=== PATIENT | female | born 1970 | race Caucasian/White ===

== ENCOUNTER 2020-05-19 20:42 | Emergency (ER) | payer OTHER ==
[2020-05-19] MEDS ORDERED: Ondansetron 4 MG Tab.DIS PO ONE (20:43)
--- NOTE | 2020-05-19 21:25 | EDM.PDOC ---
ED HPI GENERAL MEDICAL PROBLEM - General Stated Complaint: VOMITTING Time Seen by Provider: 05/19/20 21:25 Source of Information: Reports: Patient History Limitations: Reports: No Limitations - History of Present Illness INITIAL COMMENTS - FREE TEXT/NARRATIVE: 49-year-old female who reports she began to feel "off" on 05/13/2020 and the following day she felt nausea and had a frontal and occipital headache. Her daughter had been exposed to someone with COVID 19 and had a test for this on Wednesday and the patient went to have her test performed on Wednesday this week. She found out on that she was positive for Covid 19 and since Wednesday of last week she has had a persisting headache that has resolved with medications and she has developed vomiting and that with the headache seemed to worsen since then. She reports 6-7 episodes of emesis today that was nonbilious and she has a frontal and occipital headache that is a pounding and throbbing headache that she rates as a 9/10. There is some light sensitivity. There is no neck stiffness or neck pain. She has also had some abdominal cramping and has been diffuse. No diarrhea. She also reports a rash on her chest looked on . She has had a fever to 101F earlier in the week but she has had no nasal congestion, sore throat or cough. She has also had no shortness of breath. She has had decreased appetite and has not been taking by mouth well. She feels somewhat weak all over. There is no localized area of weakness or numbness. The pain in her head does not radiate. She has had no dysuria or hematuria.There are no other associated signs or symptoms. There are no other modifying factors. 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 - Related Data Allergies Allergy/AdvReac Type Severity Reaction Status Date / Time No Known Allergies Allergy Verified 05/19/20 21:37 Home Meds: Home Meds Cholecalciferol (Vitamin D3) [Vitamin D3] 1,000 units PO DAILY 07/20/18 [History] Multivitamin with Minerals [Multiple Vitamin] 1 tab PO DAILY 07/20/18 [History] Ondansetron [Zofran ODT] 4 mg PO Q6H PRN #4 tab.dis 05/20/20 [Rx] Prochlorperazine [Compazine] 10 mg PO Q6H PRN #12 tab 05/20/20 [Rx] Past Medical History Neurological History: Reports: Migraines - Past Surgical History GI Surgical History: Reports: Colonoscopy Other Dermatological Surgeries/Procedures: Lipoma removed from trunk. 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 since the Covid pandemic) ED ROS GENERAL - Review of Systems Review Of Systems: See Below Constitutional: Reports: Fever, Malaise, Weakness, Decreased Appetite HEENT: Reports: No Symptoms Respiratory: Reports: No Symptoms Cardiovascular: Reports: No Symptoms GI/Abdominal: Reports: Abdominal Pain, Nausea, Vomiting : Reports: No Symptoms Musculoskeletal: Reports: Other (Diffuse body aches.) Skin: Reports: Rash (On chest that is somewhat itchy and raised.) Neurological: Reports: Headache Hematologic/Lymphatic: Reports: No Symptoms Immunologic: Reports: No Symptoms ED EXAM, GENERAL - Physical Exam Exam: See Below Exam Limited By: No Limitations General Appearance: Alert, Moderate Distress, Obese, Other (She does however appear awake, alert and appropriate. She is nontoxic.) Eye Exam: Bilateral Eye: EOMI, Normal Inspection, PERRL Ears: Normal External Exam, Hearing Grossly Normal Ear Exam: Bilateral Ear: Auricle Normal Nose: Normal Inspection, Normal Mucosa, No Blood Throat/Mouth: Normal Voice, No Airway Compromise, Other (Dry mucous membranes) Head: Atraumatic, Normocephalic Neck: Normal Inspection, Supple, Non-Tender, Full Range of Motion, Other (No meningismus.) Respiratory/Chest: No Respiratory Distress, Lungs Clear, Normal Breath Sounds, No Accessory Muscle Use, Chest Non-Tender Cardiovascular: Normal Peripheral Pulses, Regular Rate, Rhythm, No Murmur Peripheral Pulses: 2+: Radial (L), Radial (R) GI/Abdominal: Normal Bowel Sounds, Soft, Non-Tender, No Mass Back Exam: Normal Inspection, Full Range of Motion Extremities: Normal Inspection, Normal Range of Motion, Non-Tender, No Pedal Edema, Normal Capillary Refill Neurological: Alert, Oriented, CN II-XII Intact, Normal Cognition, No Motor/Sensory Deficits Psychiatric: Normal Affect Skin Exam: Warm, Dry, Intact, Normal Color, No Rash Course - Vital Signs Last Recorded V/S: Last Vital Signs Temp 36.7 C 05/19/20 21:05 Pulse 76 05/19/20 21:05 Resp 18 05/19/20 21:05 BP 138/93 H 05/19/20 21:05 Pulse Ox 99 05/19/20 21:05 - Orders/Labs/Meds Orders: Active Orders 24 hr Category Date Time Status Sodium Chloride 0.9% [Saline Flush] Med 05/19/20 21:41 Active 10 ml FLUSH ASDIRECTED PRN Peripheral IV Insertion Adult [OM.PC] Routine Oth 05/19/20 21:41 Ordered Medication Orders Sodium Chloride (Saline Flush) 10 ml FLUSH ASDIRECTED PRN PRN Reason: Keep Vein Open Labs: Laboratory Tests 05/19/20 05/19/20 05/19/20 Range/Units 22:06 22:06 22:06 WBC 4.0 L (4.5-12.0) X10-3/uL RBC 4.94 (3.23-5.20) x10(6)uL Hgb 14.4 (11.5-15.5) g/dL Hct 43.2 (30.0-51.3) % MCV 87.3 (80-96) fL MCH 29.1 (27.7-33.6) pg MCHC 33.3 (32.2-35.4) g/dL RDW 12.4 (11.5-15.5) % Plt Count 216 (125-369) X10(3)uL MPV 7.1 L (7.4-10.4) fL Neut % (Auto) 53.8 (46-82) % Lymph % (Auto) 36.3 (13-37) % [place] % (Auto) 9.2 (4-12) % Eos % (Auto) 1 (1.0-5.0) % Baso % (Auto) 0 (0-2) % Neut # (Auto) 2.2 (1.6-8.3) # Lymph # (Auto) 1.4 (0.6-5.0) # [place] # (Auto) 0.4 (0.0-1.3) # Eos # (Auto) 0.0 (0.0-0.8) # Baso # (Auto) 0.0 (0.0-0.2) # ESR 5 (0-20) mm/hr Sodium 142 (135-145) mmol/L Potassium 3.7 (3.5-5.3) mmol/L Chloride 101 (100-110) mmol/L Carbon Dioxide 32 (21-32) mmol/L BUN 17 (7-18) mg/dL Creatinine 0.9 (0.55-1.02) mg/dL Est Cr Clr Drug Dosing 66.73 mL/min Estimated GFR (MDRD) > 60 (>60) BUN/Creatinine Ratio 18.9 (9-20) Glucose 96 (80-116) mg/dL Calcium 9.0 (8.6-10.2) mg/dL Magnesium 2.1 (1.8-2.5) mg/dL Total Bilirubin 0.8 (0.1-1.3) mg/dL AST 72 H (5-25) IU/L ALT 137 H (12-36) U/L Alkaline Phosphatase 62 (56-112) IU/L C-Reactive Protein 0.7 (0.5-0.9) mg/dL Total Protein 7.3 (6.0-8.0) g/dL Albumin 3.6 (3.5-5.2) g/dL Globulin 3.7 g/dL Albumin/Globulin Ratio 1.0 Meds: Medications Generic Name Dose Route Start Last Admin Trade Name Freq PRN Reason Stop Dose Admin Sodium Chloride 10 ml 05/19/20 21:41 Saline Flush FLUSH ASDIRECTED PRN Keep Vein Open Discontinued Medications Generic Name Dose Route Start Last Admin Trade Name Freq PRN Reason Stop Dose Admin Diphenhydramine HCl 50 mg 05/19/20 21:41 05/19/20 21:58 Benadryl IVPUSH 05/19/20 21:42 50 mg ONETIME ONE Administration Sodium Chloride 1,000 mls @ 999 mls/hr 05/19/20 21:45 05/19/20 23:30 Normal Saline IV 999 mls/hr .BOLUS BRE Administration Prochlorperazine Edisylate 10 52 mls @ 150 mls/hr 05/19/20 21:41 05/19/20 22:07 mg/ Sodium Chloride IV 05/19/20 22:01 150 mls/hr ONETIME ONE Administration - Re-Assessments/Exams Free Text/Narrative Re-Assessment/Exam: 05/19/20 23:15: The patient has received the Compazine and Benadryl and 1 L normal saline IV as a bolus. She reports that she feels improved. She has been sleeping. No more nausea and no more vomiting. Her headache is less. I will plan on giving the patient the other liter normal saline bolus. 05/20/20 00:15: The second liter of normal saline has almost confused. He is awake, alert and appropriate. She reports that her headache is essentially gone. No more nausea or vomiting. She has a supple neck and she is neurologically stable. Her blood tests are reassuring. The white was obtained was somewhat low at 4.0 and there were minor AST and ALT elevations which would be consistent with a blood panel associated with COVID 19 infection. She is much improved and is ready for discharge at this point. I will give the patient a take home pack of Zofran and I will send prescriptions for some additional Zofran ODT and also Compazine tablets. Precautions and reasons for return to the emergency department were discussed with the patient while she was in the emergency department for detail and the patient's discharge instructions. Departure - Departure Time of Disposition: 00:30 Disposition: Home, Self-Care 01 Condition: Good (Improved) Clinical Impression: Vomiting, Dehydration, moderate, COVID-19 virus infection Headache Qualifiers: Headache type: unspecified Headache chronicity pattern: acute headache Intractability: not intractable Qualified Code(s): R51.9 - Headache, unspecified - Discharge Information Prescriptions: Prochlorperazine [Compazine] 10 mg PO Q6H PRN #12 tab PRN Reason: Nausea, vomiting or headache Ondansetron [Zofran ODT] 4 mg PO Q6H PRN #4 tab.dis PRN Reason: Nausea/Vomiting Instructions: COVID-19, Nausea and Vomiting, Adult, [id number], Dehydration, Adult, [id number], COVID-19: How to Protect Yourself and Others - CDC, Prevent the Spread of COVID-19 if You Are Sick - [facility] Referrals: PCP,None [Primary Care Provider] - Additional Instructions: Your blood tests were reassuring. You did have a low white blood cell count and mild elevation in your liver associated test. This is a pattern is seen associated with COVID 19 infections and is not associated with anything of any significance other than it is a pattern seen with COVID 19. You should increase your fluid intake. Rest. Continue to self quarantine for the next 8-10 days. You can take Tylenol 1000 mg by mouth every 6 hours as needed. Avoid Aleve and ibuprofen and aspirin for now. Back to the emergency department for severe headache, unrelenting vomiting, trouble breathing, severe weakness or any other concerning sign or symptom. Sepsis Event Note (ED) - Focused Exam Vital Signs: Vital Signs Temp Pulse Resp BP Pulse Ox 05/19/20 21:05 36.7 C 76 18 138/93 H 99 - My Orders Last 24 Hours: My Active Orders 05/19/20 21:41 Sodium Chloride 0.9% [Saline Flush] 10 ml FLUSH ASDIRECTED PRN Peripheral IV Insertion Adult [OM.PC] Routine - Assessment/Plan Last 24 Hours: My Active Orders 05/19/20 21:41 Sodium Chloride 0.9% [Saline Flush] 10 ml FLUSH ASDIRECTED PRN Peripheral IV Insertion Adult [OM.PC] Routine
[2020-05-19] MEDS ORDERED: Sodium Chloride 0.9% 10 ML Syringe FLUSH PRN (21:41)
[2020-05-19] MEDS ORDERED: Prochlorperazine 10 MG in Sodium Chloride 0.9% 50 ML IV ONE (21:41)
[2020-05-19] MEDS ORDERED: diphenhydrAMINE 50 MG/ML SDV IVPUSH ONE (21:41)
[2020-05-19] MEDS: Sodium Chloride 0.9% 1,000 ML IV SCH ×2 (21:58→23:30)
== END 2020-05-20 00:50 | disposition home or self-care (01) ==
LOC: FB.ED 20:42
DX: U07.1 COVID-19 (principal); E86.0 Dehydration
CPT/HCPCS: 36415; 80053; 83735; 85025; 85651; 86140; 96365; 96375; 99284-25; A9270-GY; J0780; J1200; J7030

== ENCOUNTER 2023-02-24 21:42 | Emergency (ER) | payer OTHER ==
[2023-02-24] MEDS ORDERED: Diphtheria,Pertussis(Acell),Tetanus Vaccine 0.5 ML Syringe IM ONE (21:56)
== END 2023-02-24 22:45 | disposition home or self-care (01) ==
LOC: FB.ED 21:42
DX: S81.811A Laceration without foreign body, right lower leg, initial encounter (principal); Z79.899 Other long term (current) drug therapy; W26.8XXA Contact with other sharp object(s), not elsewhere classified, initial encounter
CPT/HCPCS: 12002; 90471; 90715; 99282-25

== ENCOUNTER 2023-05-14 06:14 | Day surgery (SDC) | payer OTHER ==
[2023-05-14] MEDS ORDERED: Lactated Ringers 1,000 ML IV SCH (06:15)
[2023-05-14] MEDS ORDERED: Sodium Chloride 0.9% 10 ML Syringe FLUSH PRN (06:15)
[2023-05-14] MEDS ORDERED: Propofol 200 MG/20 ML SDV IV ONE (06:15)
[2023-05-14] MEDS ORDERED: Lidocaine 2% 5 ML SDV IV ONE (06:15)
[2023-05-14] MEDS ORDERED: Simethicone Drops 40 MG/0.6 ML 30 ML Bottle ONE (07:11)
== END 2023-05-14 09:13 | disposition home or self-care (01) ==
LOC: FB.SDS 06:14
PROVIDERS: ATTEND Surgery
DX: Z12.11 Encounter for screening for malignant neoplasm of colon (principal); D12.0 Benign neoplasm of cecum; E66.01 Morbid (severe) obesity due to excess calories; Z68.42 Body mass index [BMI] 45.0-49.9, adult; Z80.0 Family history of malignant neoplasm of digestive organs
CPT/HCPCS: 00811; 88305; A9270-GY; J2704; J7120